=== PATIENT | male | born 1940 | race Caucasian/White ===

== ENCOUNTER → 2016-11-04 | Outpatient (CLI) | payer OTHER, BC ==
[~2016-11-04] VITALS: Ht 177.8 cm; Wt 137.9 kg
[~2016-11-04] MED LIST: ACETAMINOPHEN-1 EAC1 PO; ACETAMINOPHEN325 M1 PO; ADULT LOW DOSE81 MG PO; AMOXICILLIN875 MG PO; APAP500 PO; ASPIR-TRIN325 MG PO; ASPIRIN325 PO; BIOTIN1 MG PO; BISACODYL SUPP10 MG RE; CALCIUM 600 +1 EAC1 PO; CALCIUM OYSTER500 MG OR; CALCIUM-MAGNES1 EA10 PO; CHROMIUM200 MCG PO; CO Q-10100 MG OR; CO Q-10100 MG PO; COLACE 100 MG100 MG PO; COLACE100 MG PO; COQ-10100 MG PO; COUMADIN 5 MG TA5 M1 PO; CRANBERRY200 MG PO; DUONEB 2.5-0.5 M3 ML INH; EFFIENT10 MG PO; ENOXAPARIN40 MG/0.1 SUBQ; FUROSEMIDE 20 M20 MG PO; GLUCOPHAGE1000 MG PO; GLUCOPHAGE500 MG PO; GLUCOSAMINE HC500 MG PO; GLUCOSAMINE-CH1 EA15 PO; GLUCOSAMINE-CH1 EA35 PO; IRON325 PO; LASIX 20 MG TAB20 MG PO; LEVAQUIN 500 M500 M2 PO; LISINOPRIL20 MG PO; LISINOPRIL40 MG PO; MAG-AL PLUS SUS30 ML PO; MEN'S 50+ DAIL1 EACH PO; METFORMIN PO; MUCINEX TA600 MG/TA2 PO; MULTIVITAMINS1 EAC7 PO; NITROQUICK0.4 MG SUBLING; NORVASC5 MG PO; PUB GLUCOSAMIN1 EACH OR; RAPAFLO8 MG PO; SAW PALMETTO160 MG PO; SAW PALMETTO500 MG PO; SENNA LAX8.6 MG PO; TRAMADOL 50 MG50 MG OR; TRAMADOL 50 MG50 MG PO; TRIAMTERENE-HC1 EAC1 OR; TYLENOL325 MG PO; UNICOMPLEX M TA1 TA1 PO; VITAMIN B-1100 M1 PO; VITAMIN C + RO500 MG OR; VITAMIN D1000 UNI1 PO; VITAMIN D400 UNI1 PO; VITAMIN E200 UNI4 PO; VITAMIN E400 UNIT PO; ZPAK; [UNRECOGNIZED DRUG - OTHER]
--- NOTE | ~2016-11-04 | HPC ---
[facility] [place] [address] PAIN MANAGEMENT CONSULTATION Name: JOANNA ESCALANTE Room #: REG [facility].#: [id number] Admission: 11/04/16 Attend Phys: Kin Elder MD Discharge: Date of : 38 Report #: [id number] THIS REPORT FOR: //name// CC: Nixon Elder DATE OF SERVICE: 11/04/2016 Followup visit for chronic low back pain with radiculopathy. He returns to the pain clinic today for treatment of his multilevel spinal stenosis. He has been a favorable responder to epidural injections, which we provide on an as needed basis, using the fewest number of injections that we can use over a period of time to provide the best relief. He has critical stenosis at L3-L4. He also has stenosis which is severe at L2-L3 as well as at L4-L5. We have discussed treatment options in the past. He would be challenging surgical candidate related to his age and comorbidities. There may be some newer options that are re-entering the market, which we will be discussed later and will be discussed below. He uses medications sparingly and is not taking a significant amount of pain medication. He has tramadol 50 mg ordered 3 times daily p.r.n. He also utilizes acetaminophen extra strength twice a day and takes glucosamine preventatively. Other medications are vitamin, saw palmetto, cranberry extract, COQ10, aspirin, calcium, Lasix, Colace and lisinopril. ALLERGIES: STATINS are poorly tolerated, SULFA, ADHESIVE and he cannot take EFFIENT, the blood thinner, which he was on following stent placement. PHYSICAL EXAMINATION: GENERAL: He is a pleasant, outgoing 76-year-old. VITAL SIGNS: Blood pressure 133/70, heart rate is 88. His BMI is 43.6 and he is morbidly obese. NEUROLOGIC: He moves from sitting to standing position, ambulates with a walking cane. He has some instability due weakness of his left leg. CARDIAC: Rhythm is regular. CHEST: Clear. He breaths easily. EXTREMITIES: Straight leg raising on the left reproduces pain and he has significant weakness in the left hip flexion and leg extension compared to the right. Plantar flexion and dorsiflexion are symmetrical and within normal limits bilaterally. There is mild decreased sensation throughout the lower extremities, particularly on the left, in the distribution of L2, [place]3 [place] [address] PAIN MANAGEMENT CONSULTATION Name: JOANNA ESCALANTE Room #: REG [facility] Oscar#: [id number] Admission: 11/04/16 Attend Phys: Kin Elder MD Discharge: Date of : 38 Report #: [id number] IMPRESSION: 1. Low back pain related to multilevel spinal stenosis. 2. Lumbar radiculopathy, primarily in the distribution of L3-L4. 3. Noninsulin-dependent diabetes. 4. Morbid obesity. 5. Coronary artery disease, status post stent placement. RECOMMENDATIONS: We discussed repeating epidural injections periodically. He has reported up to 4 months of pain relief at 80%. This is an excellent response and places him in the responding category. In the future, I think we are going see less invasive treatments for spinal stenosis and these would likely be on centered up on decompression of the thickened ligamentum flavum. MILD is making surgeons and many locations. In our early evaluation of that procedure, we found some excellent responders and the risks are low. Not ready to recommend that he go for that procedure, yet that if he begins to fail in response to these straight-forward epidural injections, we will consider that as the next step. PROCEDURE: Lumbar epidural injection L3-L4 under fluoroscopic guidance. PROCEDURE NOTE: After both written and informed consent to include risk of spinal cord damage, increased pain, weakness and dural puncture, the patient was taken to the fluoroscopy suite, placed in the prone position. After sterile prep and drape, a skin wheal with lidocaine was raised. I used a 20-gauge Tuohy needle was inserted in the midline at L3-L4 with good loss to resistance. Negative aspiration for cerebrospinal fluid or blood was noted. Then 1 mL of Omnipaque under biplanar fluoroscopy showed good spread within the epidural space. I injected 60 mg of triamcinolone and 3 mL of 0.5% lidocaine. The patient tolerated the procedure well and was discharged in good condition to the recovery room. Follow up as needed. By: [id number] [id number] Kin Elder MD /nt
[2016-11-04 08:14] VITALS: BP 133/70
== END ==
LOC: PAIN 06:52
DX: M54.16 Radiculopathy, lumbar region (principal); M48.06 Spinal stenosis, lumbar region; E11.9 Type 2 diabetes mellitus without complications; I25.10 Atherosclerotic heart disease of native coronary artery without angina pectoris; E66.01 Morbid (severe) obesity due to excess calories; Z68.41 Body mass index [BMI] 40.0-44.9, adult; I10 Essential (primary) hypertension

== ENCOUNTER → 2017-01-31 | Outpatient (CLI) | payer OTHER, BC ==
[~2017-01-31] VITALS: Ht 182.9 cm; Wt 130.6 kg
[~2017-01-31] MED LIST changes: +IRON325 MG PO
[2017-01-31 12:34] VITALS: BP 152/70
== END | disposition home or self-care (01) ==
LOC: PAIN 06:54
DX: M48.06 Spinal stenosis, lumbar region (principal); E11.9 Type 2 diabetes mellitus without complications; I25.10 Atherosclerotic heart disease of native coronary artery without angina pectoris; E66.01 Morbid (severe) obesity due to excess calories; Z88.2 Allergy status to sulfonamides; Z88.8 Allergy status to other drugs, medicaments and biological substances; Z79.82 Long term (current) use of aspirin; Z98.890 Other specified postprocedural states

== ENCOUNTER → 2017-04-18 | Outpatient (CLI) | payer OTHER, BC ==
[~2017-04-18] VITALS: Ht 182.9 cm; Wt 130.5 kg
--- NOTE | ~2017-04-18 | HPC ---
[facility] [place] [address] PAIN MANAGEMENT CONSULTATION Name: JOANNA ESCALANTE Room #: REG [facility]#: [id number] Admission: 04/18/17 Attend Phys: Kin Elder MD Discharge: Date of : 38 Report #: [id number] THIS REPORT FOR: //name// CC: Nixon Elder DATE OF SERVICE: 04/18/2017 REASON FOR VISIT: Followup visit for low back pain with radiculopathy. HISTORY OF PRESENT ILLNESS: The patient returns to pain clinic today for an epidural injection. He has done well with these injections performed intermittently. Over the last 2 years, we performed six injections. This will be his seventh injection in the course of the last 21 months. This is roughly an injection every 3 months. He is hopeful that he can good relief with these intermittent injections rather than pursue a surgical course. Pain today is once again described as pain in the low back, radiating into the left buttock. Pain radiates following the dermatomal distribution of L4-L5. I have no current rate studies, but he has responded very well to the previous injections and it is appropriate, I believe, to proceed with a repeat epidural injection today. I would like to avoid taking any medications that may have significant side effects and would like to avoid opioid analgesics as well. PHYSICAL EXAMINATION: NEUROLOGICAL: He is pleasant, obese gentleman, moves easily from sitting to standing position and walks with antalgic features. He has pain across his low back with forward flexion and extension. VITAL SIGNS: Blood pressure 128/60, heart rate 84, respirations are 20 and his BMI is 39.0. MUSCULOSKELETAL: Straight leg raising is present on the left, reproducing L4-L5 distribution symptoms. IMPRESSION: Lumbar radiculopathy on the left L4-L5 distribution. PROCEDURE: Lumbar epidural steroid injection under fluoroscopic guidance, L4-L5, left paramedian. DESCRIPTION OF PROCEDURE: He was taken to fluoroscopic suite, placed prone, skin prepped with ChloraPrep and skin anesthetized over the L4-L5 neural foramen. A 20-gauge Tuohy epidural needle was advanced at first attempt into the epidural space with loss of resistance. There was no blood or CSF aspirated. A 1 mL of Omnipaque was injected. Good spread of dye observed into the epidural space followed by 3 mL of 0.5% lidocaine mixed with 80 mg of triamcinolone. He tolerated the procedure well and was observed for 45 [place] [address] PAIN MANAGEMENT CONSULTATION Name: JOANNA ESCALANTE Room #: REG [facility] Oscar#: [id number] Admission: 04/18/17 Attend Phys: Kin Elder MD Discharge: Date of : 38 Report #: [id number] Followup visit planned as needed. By: [id number] 0258 Kin Elder MD /nt
[2017-04-18 14:08] VITALS: BP 128/60
== END | disposition home or self-care (01) ==
LOC: PAIN 07:27
DX: M54.16 Radiculopathy, lumbar region (principal); Z68.39 Body mass index [BMI] 39.0-39.9, adult

== ENCOUNTER 2017-08-01 06:48 | Emergency (ER) | payer OTHER, BC ==
[~2017-08-01] VITALS: Ht 182.9 cm; Wt 126.1 kg
[~2017-08-01 06:48] MED LIST changes: +FISH OIL 1,001000 M2 PO; +VITAMIN D2000 UNIT PO
[2017-08-01 07:41] LABS: HEMATOCRIT 36.5 % (42.0-52.0); HEMOGLOBIN 11.8 gm/dL (14.0-18.0); MCH 27.4 pg (26.0-34.0); MCHC 32.2 g/dL (28.0-37.0); MCV 84.9 fL (80.0-100.0); RBC 4.3 mil/uL (4.50-6.00); RDW 16.2 % (10.5-14.5); WBC 6.8 thou/uL (4.0-11.0)
[2017-08-01 07:48] LABS: CALCIUM 8.8 mg/dL (8.5-10.1); CREATININE 1.4 mg/dL (0.7-1.3); POTASSIUM 4.4 mmol/L (3.5-5.1)
[2017-08-01 07:50] LABS: ABG SAMPLE TYPE VENOUS; BE(vivo) -2.2 mmol/L (-2 to +3); LACTATE 1.99 mmol/L (0.5-2.0); O2(CT) 17.7 mL/dL (15.0-23.0); O2Hb VENOUS 94.9 (65.0-85.0); PCO2 VENOUS 35.8 mmHg (41.0-51.0); PO2 VENOUS 184.9 mmHg (35.0-45.0); sO2 VENOUS 99.3 % (65.0-85.0); tCO2 23.1 mmol/L (24.0-30.0)
== END 2017-08-01 08:28 | disposition home or self-care (01) ==
LOC: ER 06:48
PROVIDERS: Emergency Medicine
DX: J70.5 Respiratory conditions due to smoke inhalation (principal); Z90.49 Acquired absence of other specified parts of digestive tract; Z88.8 Allergy status to other drugs, medicaments and biological substances; Z88.2 Allergy status to sulfonamides

== ENCOUNTER → 2017-10-13 | Outpatient (CLI) | payer OTHER, BC ==
[~2017-10-13] VITALS: Ht 182.9 cm; Wt 135.4 kg
[~2017-10-13] MED LIST changes: +VITAMINC500 PO
--- NOTE | ~2017-10-13 | HPC ---
[facility] [place] [address] PAIN MANAGEMENT CONSULTATION Name: JOANNA ESCALANTE Room #: REG [facility].#: [id number] Admission: 10/13/17 Attend Phys: Kin Elder MD Discharge: Date of : 39 Report #: [id number] THIS REPORT FOR: //name// CC: Nixon Elder DATE OF SERVICE: 10/13/2017 Followup visit for low back pain with radiculopathy. The patient returns to clinic today for an epidural injection. His last injection was performed 3 months ago. In addition to injections, he has continued to try and do exercise on a regular basis. I reviewed his PQRS assessment. He does not have osteoarthritis, but complains only of back pain with radiculopathy and spondylosis. He is obese with a BMI of 40.9. It is difficult for him to exercise, but we discussed weight management as a way of controlling his back pain. His pain intensity can vary anywhere from a 0 in the sitting position to 8 when ambulating. He is a fall risk due to dizziness and he needs help getting up and down and walking using a cane. He is not on a blood thinner, but has been treated effectively for hypertension. He has completed an opioid risk tool, but is not currently receiving opioids from our clinic. PHYSICAL EXAMINATION: Back reveals tenderness across the low back. He has restricted range of motion in flexion, extension, okbo-gh-uhaf tilt. Straight leg raising is positive bilaterally. Pain is worse on the left than the right. Sensation is diminished in the lower extremities. IMPRESSION: 1. Low back pain with radiculopathy. 2. Morbid obesity. RECOMMENDATION: Epidural steroid injection under fluoroscopic guidance. PROCEDURE: He was taken to fluoroscopic suite for treatment, placed prone, skin prepped with ChloraPrep. Skin anesthetized over the L4-L5 interspace. Needle was positioned in the left midline using loss of resistance technique. There was no blood or CSF aspirated. 1 mL of Omnipaque was injected. Good spread of dye observed in the epidural space, was followed by 3 mL of 0.5% lidocaine mixed with 80 mg of triamcinolone. He tolerated the procedure well and was observed for 45 minutes and discharged. [address] [address] PAIN MANAGEMENT CONSULTATION Name: JOANNA ESCALANTE Room #: [facility]#: [id number] Admission: 10/13/17 Attend Phys: Kin Elder MD Discharge: Date of : 39 Report #: [id number] Followup visit planned on an as needed basis. <ELECTRONICALLY SIGNED> By: Kin Elder MD 11/14/17 1408 1446 1926 Kin Elder MD /nt
[2017-10-13 13:03] VITALS: BP 122/60
== END | disposition home or self-care (01) ==
LOC: PAIN 06:53
DX: M54.16 Radiculopathy, lumbar region (principal); M47.896 Other spondylosis, lumbar region; I10 Essential (primary) hypertension; E66.01 Morbid (severe) obesity due to excess calories; Z68.41 Body mass index [BMI] 40.0-44.9, adult; Z88.2 Allergy status to sulfonamides; Z88.8 Allergy status to other drugs, medicaments and biological substances; Z79.82 Long term (current) use of aspirin; Z79.899 Other long term (current) drug therapy; Z79.891 Long term (current) use of opiate analgesic

== ENCOUNTER → 2018-01-09 | Outpatient (CLI) | payer OTHER, BC ==
[~2018-01-09] VITALS: Ht 182.9 cm; Wt 136.4 kg
--- NOTE | ~2018-01-09 | HPC ---
[facility] [place] [address] PAIN MANAGEMENT CONSULTATION Name: JOANNA ESCALANTE Room #: REG [facility].#: [id number] Admission: 01/09/18 Attend Phys: Kin Elder MD Discharge: Date of : 38 Report #: [id number] THIS REPORT FOR: //name// CC: Nixon Elder DATE OF SERVICE: 01/09/2018 Followup visit for chronic low back pain with radiculopathy. The patient has chronic back pain with spinal stenosis. It has been responsive to epidural steroid injections. He has made a decision that he is not interested in pursuing additional treatment options and is hopeful that he can continue to receive intermittent epidural injections within the guidelines to provide relief. In 2017, he received injections about every 3 months with good response. He is now asking for his second injection in 2018. Again, remaining on about a 3-month schedule. He again reports as before that his pain results generally are quite good quickly after the injection, and he obtains quite good relief to the point where he does not need pain medication or chiropractic visit for nearly 2 months. The pain then gradually returns to the 3-month interval when he comes back to the clinic. He describes his pain across the low back. He does have some radiating pain down into his legs consistent with radiculopathy related to spinal stenosis. Pain is worse with walking and bending. It is alleviated by medication, sitting, and he does get some relief from his chiropractic treatments. MEDICATIONS: Reviewed. Tramadol is provided by Dr. Ellis. Again, he uses it mostly closer to the time of the injection. There has been no interval health history since his last visit. He has not been hospitalized. He does consider himself weaker; however, toward the end of his injection. Interestingly, when the pain is better, he also feels that he has greater strength in his legs. He is a fall risk and has fallen in the last 3 months, and he has been counseled about cautious movements. He does not use a walker. He does have a history of diffuse osteoarthritis and is morbidly obese with a BMI of 40.8. He needs to be cautious about falls and is at risk of fracture. Dr. Ellis treats him for hypertension. He is on no blood thinners. He is at low risk for any addiction. We did complete a risk assessment tool as well as a function assessment tool which are on the chart. He does not smoke. PHYSICAL EXAMINATION: He is a very pleasant, outgoing 77-year-old. Blood pressure is 149/53, heart rate 102. His height is 6 feet, BMI is 40.8. He has pain across his low back. He has pain with forward flexion and extension. He has positive straight leg raising bilaterally, radiating into the lateral and [facility] [address] [place] [address] PAIN MANAGEMENT CONSULTATION Name: JOANNA ESCALANTE [facility] [id number] Admission: 01/09/18 Attend Phys: Kin Elder MD Discharge: Date of : 38 Report #: [id number] posterior aspect of the leg, greater pain on the left once again. He does have some generalized weakness of the lower extremities noted today. IMPRESSION: 1. Lumbar radiculopathy. 2. Morbid obesity. PROCEDURE: Epidural steroid injection under fluoroscopic guidance. DESCRIPTION OF PROCEDURE: He was taken to fluoroscopic suite, placed prone, skin prepped with ChloraPrep. Skin anesthetized over the L4-L5 interspace. A 20-gauge Tuohy epidural needle advanced on the first attempt into the epidural space with loss of resistance technique. There was no blood or CSF aspirated. 1 mL of Omnipaque injected. Good spread of dye was observed into the epidural space, was followed by 3 mL of 0.5% lidocaine mixed with 80 mg of triamcinolone. He tolerated the procedure well, was observed for 45 minutes and discharged. Followup visit planned in the pain clinic on an as needed basis, probably in about 3 months. By: 1051 1516 Kin Elder MD /nt
[2018-01-09 14:26] VITALS: BP 149/53
== END | disposition home or self-care (01) ==
LOC: PAIN 07:05
DX: M54.16 Radiculopathy, lumbar region (principal); G89.29 Other chronic pain; I10 Essential (primary) hypertension; M19.90 Unspecified osteoarthritis, unspecified site; E66.01 Morbid (severe) obesity due to excess calories; Z98.890 Other specified postprocedural states; Z88.2 Allergy status to sulfonamides; Z88.8 Allergy status to other drugs, medicaments and biological substances; Z68.41 Body mass index [BMI] 40.0-44.9, adult; Z79.82 Long term (current) use of aspirin; Z79.899 Other long term (current) drug therapy

== ENCOUNTER → 2018-10-31 | Outpatient (CLI) | payer OTHER, BC ==
[~2018-10-31] VITALS: Ht 182.9 cm; Wt 125.6 kg
[2018-10-31 07:10] VITALS: BP 150/77
--- NOTE | 2018-10-31 07:45 | EKG ---
[place] [address] [address] [facility] [employer] [address] ELECTROCARDIOGRAM REPORT Name: JOANNA ESCALANTE Room #: REG 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 ROMERO : 1940 Requested By: Rodrigue Jones Order Number: [id number] MD: Rodrigue Jones Measurements Intervals [place] Rate: 73 P: -6 OR: 178 QRS: -33 QRSD: 138 T: 91 QT: 409 QTc: 451 Interpretive Statements Sinus rhythm Incomplete left bundle branch block Compared to ECG 10/19/2012 22:08:41 no significant change was found Electronically Signed On 10-31-2018 7:44:49 CDT by Rodrigue Jones [email or web address] ��������������������������������������������� <ELECTRONICALLY SIGNED> ���������������������������������������� By: Rodrigue Jones MD, [facility] ��������������������������������������������� 10/31/18 0744 4 4 Rodrigue Jones MD, [facility] /EPI
--- NOTE | 2018-10-31 08:42 | CATHLAB ---
[facility] [address] [place] [address] INVASIVE PROCEDURE REPORT Name: JOANNA ESCALANTE Colleen Room #: [facility]#: [id number] ������������� Admission: 10/31/18 ������������� Attend Phys: Rodrigue Jones, Discharge: ��� ������������� ��� Date of : 38 Date of Service: 10/31/18 0842 �� Report #: [id number] �������� ��������������������������������������������[id number] THIS REPORT FOR: //name// APPROVED REPORT Study performed: 10/31/2018 07:23:52 Patient Details Patient Status: Out-Patient Room #: The patient is a 78 year-old male Event Personnel Rodrigue Jones Finance Business Partner, Prasanna Rodriguez RN RN, Nixon Arenas Mahmood, Amber Monitor Procedures Performed Art Access - R femoral artery* [id number] Initial Mod Sed Same Phys/QHP Gr5y [id number] Left Heart Cath w/or w/o Coronaries [id number] [facility] Hemostasis w/ Mynx Indication Chest pain Procedure Narrative The patient was brought electively to the Cardiac Catheterization Laboratory and was prepped and draped in a sterile manner. The Right Groin^ was infiltrated with subcutaneous anesthesia. A PINNACLE 6FR Sheath #[id number] sheath was inserted into the RFA^. Coronary angiography was performed using coronary diagnostic catheters. The right coronary system was accessed and visualized with a JR 4 catheter. The left coronary system was accessed and visualized with a JL 4 catheter. The left ventricle was accessed and visualized with a Pigtail catheter. Left ventricular/Aortic Valve gradient assessed via catheter pullback. Left ventriculogram was performed in BARTH projection. Pre-demployment femoral angiogram was performed . Closure device was deployed with a 6 Fr Mynx. The patient tolerated the procedure well and there were no complications associated with the procedure. There was no hematoma. Intraoperative Conscious Sedation Sedation start time: 07:55 Case end Time: 08:13 Fentanyl 25 mcg Versed 1.5 mg Fluoro Time: 1.30 minutes [facility] [place] [address] INVASIVE PROCEDURE REPORT Name: JOANNA ESCALANTE Room #: [facility]#: [id number] ������������� Admission: 10/31/18 ������������� Attend Phys: Rodrigue Jones, Discharge: ��� ������������� ��� Date of : 38 Date of Service: 10/31/18 0842 �� Report #: [id number] �������� ��������������������������������������������[id number] Dose: DAP 5974.00 cGycm2 722 mGy Contrast Type and Amount: Omnipaque 115 ml Coronary Angiography The patient's coronary anatomy is co- dominant. Diagnostic Cath Left Main Normal left main LAD The LAD was a large vessel that extended to the inferoapex. Minimal distal plaquing. Diagonal 1 Large first diagonal branch, angiographically normal Diagonal 2 Moderate second diagonal branch, angiographically normal Circumflex The circumflex was large and codominant. Mild proximal plaquing OM1 The first marginal branch bifurcated proximally. Just after the bifurcation in each limb, widely patent stents OM2 Moderate size second marginal branch with minimal plaquing L PDA The distal circumflex gave rise to the posterior descending which was angiographically normal. Right Coronary The right coronary was codominant and exhibited minimal proximal plaquing Left Ventriculography The left ventricle is normal in size with normal contractility. The left ventricular ejection fraction is estimated to be 60-65%. Left ventricular wall motion abnormalities are not present. There is no mitral insufficiency. Hemodynamics The aortic pressure is 145/61 mmHg with a mean of 100 mmHg. The left ventricular pressure is 140/8 mmHg with a mean of mmHg. The left ventricular end diastolic pressure is 26 mmHg. Conclusion 1. Normal global and regional left ventricular systolic function. Ejection fraction 60-65% 2. Normal left main 3. Minimal scattered plaquing in a codominant circulation. Widely patent circumflex stents. [facility] [address] [place] [address] INVASIVE PROCEDURE REPORT Name: JOANNA ESCALANTE Room #: [facility]#: [id number] ������������� Admission: 10/31/18 ������������� Attend Phys: Rodrigue Jones, Discharge: ��� ������������� ��� Date of : 38 Date of Service: 10/31/18 0842 �� Report #: [id number] �������� ��������������������������������������������[id number] Recommendations Aggressive Medical Therapy ��������������������������������������������� <ELECTRONICALLY SIGNED> ���������������������������������������� By: Rodrigue Jones MD, [facility] ��������������������������������������������� [address] 1 1 Rodrigue Jones MD, [facility] /INF
== END | disposition home or self-care (01) ==
LOC: CATH 06:35
DX: I25.10 Atherosclerotic heart disease of native coronary artery without angina pectoris (principal); I10 Essential (primary) hypertension; E78.5 Hyperlipidemia, unspecified; E11.9 Type 2 diabetes mellitus without complications; G47.33 Obstructive sleep apnea (adult) (pediatric); E66.09 Other obesity due to excess calories; Z79.4 Long term (current) use of insulin; Z87.891 Personal history of nicotine dependence; Z95.5 Presence of coronary angioplasty implant and graft; Z90.49 Acquired absence of other specified parts of digestive tract; Z98.890 Other specified postprocedural states; Z79.899 Other long term (current) drug therapy; Z88.2 Allergy status to sulfonamides; Z88.8 Allergy status to other drugs, medicaments and biological substances

== ENCOUNTER → 2019-09-21 | Outpatient (CLI) | payer OTHER, BC | LOC: SJCVC 13:01 | DX: I44.7 Left bundle-branch block, unspecified (principal); R94.31 Abnormal electrocardiogram [ECG] [EKG]; I11.0 Hypertensive heart disease with heart failure; I50.32 Chronic diastolic (congestive) heart failure; I25.10 Atherosclerotic heart disease of native coronary artery without angina pectoris; E78.5 Hyperlipidemia, unspecified; I65.23 Occlusion and stenosis of bilateral carotid arteries; G47.33 Obstructive sleep apnea (adult) (pediatric); E11.9 Type 2 diabetes mellitus without complications; Z90.49 Acquired absence of other specified parts of digestive tract; Z96.651 Presence of right artificial knee joint; Z96.652 Presence of left artificial knee joint ==

== ENCOUNTER → 2020-03-26 | Outpatient (CLI) | payer OTHER, BC | LOC: SJCVCIMAG 08:44 | PROVIDERS: ATTEND Internal Medicine | DX: I08.8 Other rheumatic multiple valve diseases (principal); I65.23 Occlusion and stenosis of bilateral carotid arteries; I45.4 Nonspecific intraventricular block; R94.31 Abnormal electrocardiogram [ECG] [EKG]; I25.10 Atherosclerotic heart disease of native coronary artery without angina pectoris; I11.0 Hypertensive heart disease with heart failure; I50.32 Chronic diastolic (congestive) heart failure; E78.5 Hyperlipidemia, unspecified; G47.33 Obstructive sleep apnea (adult) (pediatric); I44.7 Left bundle-branch block, unspecified; E11.9 Type 2 diabetes mellitus without complications; E66.9 Obesity, unspecified; Z79.899 Other long term (current) drug therapy; Z87.891 Personal history of nicotine dependence ==

== ENCOUNTER → 2020-09-29 | Outpatient (CLI) | payer OTHER, BC | LOC: SJCVC 10:59 | PROVIDERS: ATTEND Internal Medicine | DX: R94.31 Abnormal electrocardiogram [ECG] [EKG] (principal); I25.10 Atherosclerotic heart disease of native coronary artery without angina pectoris; I11.0 Hypertensive heart disease with heart failure; I50.32 Chronic diastolic (congestive) heart failure; E78.5 Hyperlipidemia, unspecified; I65.23 Occlusion and stenosis of bilateral carotid arteries; G47.33 Obstructive sleep apnea (adult) (pediatric); I44.7 Left bundle-branch block, unspecified; E66.9 Obesity, unspecified; Z79.899 Other long term (current) drug therapy; Z87.891 Personal history of nicotine dependence; Z72.89 Other problems related to lifestyle; Z79.82 Long term (current) use of aspirin; Z88.1 Allergy status to other antibiotic agents; Z88.2 Allergy status to sulfonamides ==